=== PATIENT | female | born 1970 | race Caucasian/White ===

== ENCOUNTER 2019-05-06 14:10 | Outpatient (CLI) | payer OTHER | END 2019-05-06 23:59 | disposition home or self-care (01) | LOC: CFH 14:10 → MERGE 14:30 → CFH 23:59 | PROVIDERS: ATTEND Physician Assistant | DX: K76.0 Fatty (change of) liver, not elsewhere classified (principal); R31.9 Hematuria, unspecified | CPT/HCPCS: 74176 ==